=== PATIENT | female | born 1985 | race Caucasian/White ===

== ENCOUNTER 2016-12-09 10:09 | Emergency (ER) | payer OTHER ==
[2016-12-09 10:22] VITALS: BP 116/76; PULSE 73; RESP 16; TEMP 98.4; O2SAT 97
--- NOTE | 2016-12-09 10:36 | C.PDOC ---
History Of Present Illness 31 year old patient presents to the ED complaining of a diffuse and pruritic rash to her hands, extremities and torso for the past week. Patient's daughter also has similar symptoms. Patient states her daughter was given Hydrocortisone by her shuttle filler for the rash and they both have been using it without any improvement. The shuttle filler thought it was bed bugs, but the patient did not see any. Patient denies fever, cough, sensation, throat closing, wheezing, any new/unusual foods, or any new/unusual products. Time Seen by Provider: 12/09/16 10:26 Chief Complaint (Nursing): Abnormal Skin Integrity History Per: Patient History/Exam Limitations: no limitations Onset/Duration Of Symptoms: Other (1 week) Current Symptoms Are (Timing): Still Present Quality Of Symptoms: Itching Severity: Mild Pain Scale Rating Of: 2 Recent travel outside of the [place]: No Past Medical History Reviewed: Historical Data, Nursing Documentation, Vital Signs Vital Signs: Last Vital Signs Temp 98.4 F 12/09/16 10:50 Pulse 73 12/09/16 10:50 Resp 16 12/09/16 10:50 BP 116/76 12/09/16 10:50 Pulse Ox 97 12/09/16 11:15 Family History: States: No Known Family Hx - Social History Hx Tobacco Use: No Hx Alcohol Use: No Hx Substance Use: No - Immunization History Hx Tetanus Toxoid Vaccination: No Hx Influenza Vaccination: Yes Hx Pneumococcal Vaccination: No Review Of Systems Except As Marked, All Systems Reviewed And Found Negative. Constitutional: Negative for: Fever ENT: Negative for: Throat Pain, Throat Swelling Respiratory: Negative for: Cough, Wheezing Skin: Positive for: Rash (diffuse) Physical Exam - Physical Exam Appears: Non-toxic, No Acute Distress Skin: Warm, Dry, Rash (scattered maculopapular rash in the interdigital webs bilaterally in linear configurations; non-vesicular; spares the palms and soles) Oral Mucosa: Moist Tongue: Normal Appearing Lips: Normal Appearing Throat: Normal, No Erythema, No Exudate, No Drooling Chest: Symmetrical Cardiovascular: Rhythm Regular Respiratory: Normal Breath Sounds, No Rales, No Rhonchi, No Wheezing, Other ( speaking in complete sentences) Neurological/Psych: Oriented x3, Normal Speech, Normal Cognition ED Course And Treatment O2 Sat by Pulse Oximetry: 97 (RA) Pulse Ox Interpretation: Normal Progress Note: Patient is given Benadryl and Prednisone in the ED. Patient is discharged with a prescription for Benadryl, Prednisone and Permethrin cream to alleviate the symptoms. Patient is discharged and instructed to follow up with her PMD in 1-2 days or return if symptoms worsen. Disposition Counseled Patient/Family Regarding: Diagnosis, Need For Followup, Rx Given - Disposition Referrals: [facility] [Outside] Disposition: HOME/ ROUTINE Disposition Time: 10:45 Condition: STABLE Additional Instructions: FOLLOW UP WITH YOUR DOCTOR/CLINIC IN 1-2 DAYS USE MEDICATIONS DIRECTED WASH ALL LINENS WITH HOT WATER RETURN TO EMERGENCY ROOM IF SYMPTOMS WORSEN SEGUIMIENTO CON SMITH DOCTOR / CLNICA EN 1-2 JUNE USE MEDICAMENTOS SEGN LO DIRIGIDO KAREN TODAS LAS MARJ CON EKWOK DEVUELVA A LA ROSARIO DE EMERGENCIA SI LOS SNTOMAS EMPEORARAN Prescriptions: DiphenhydrAMINE [Benadryl] 25 mg PO Q4H PRN #15 cap PRN Reason: allergies Permethrin 5% [Permethrin] 5 unit TP ONCE #1 tube predniSONE [predniSONE Tab] 40 mg PO DAILY #6 tab Instructions: Dermatitis (ED), Scabies (ED) Print Language: UPPER SORBIAN - POA Present On Arrival: None - Clinical Impression Clinical Impression: Scabies, Dermatitis - Scribe Statement The provider has reviewed the documentation as recorded by the Scribe Nancy Tello Provider Attestation: All medical record entries made by the Scribe were at my direction and personally dictated by me. I have reviewed the chart and agree that the record accurately reflects my personal performance of the history, physical exam, medical decision making, and the department course for this patient. I have also personally directed, reviewed, and agree with the discharge instructions and disposition.
== END 2016-12-09 10:50 | disposition home or self-care (01) ==
LOC: C.ER 10:09
DX: B86 Scabies (principal); L30.9 Dermatitis, unspecified

== ENCOUNTER 2018-01-01 18:16 | Emergency (ER) | payer SELFPAY ==
[2018-01-01 18:32] VITALS: O2SAT 98
[2018-01-01] MEDS ORDERED: Apap-Butalbital-Caffeine 325-50-40mg Tab PO STA (19:31)
[2018-01-01] MEDS ORDERED: Apap-Butalbital-Caffeine 325-50-40mg Tab ONE (19:43)
--- NOTE | 2018-01-01 20:55 | CT ---
EXAM: CT Head Without Intravenous Contrast CLINICAL HISTORY: 32 years old, female; Condition or disease; Headache; Headache not specified TECHNIQUE: Axial computed tomography images of the head/brain without intravenous contrast. All CT scans at this facility use one or more dose reduction techniques, viz.: automated exposure control; ma/kV adjustment per patient size (including targeted exams where dose is matched to indication; i.e. head); or iterative reconstruction technique. COMPARISON: No relevant prior studies available. FINDINGS: Brain: Unremarkable. No significant white matter disease. No edema. No intracranial mass, mass effect, or midline shift. Ventricles: Unremarkable. No ventriculomegaly. Bones/joints: Unremarkable. No acute fracture. Soft tissues: Unremarkable. Sinuses: Unremarkable as visualized. No acute sinusitis. Mastoid air cells: Unremarkable as visualized. No mastoid effusion. IMPRESSION: No acute intracranial abnormality.
--- NOTE | 2018-01-01 20:59 | C.PDOC ---
History Of Present Illness 32 year old female with PMHx of migraines presents to the ED c/o moderate frontal headache associated with nausea that started yesterday. Patient noticed some swelling of her left eye which concerned her and prompted the ED visit. Patient reports she had not taken any pain medications at this time. Patient denies trauma, injury, fall, blurry vision, nausea, vomit, fever, chills, weakness, numbness. Time Seen by Provider: 01/01/18 19:22 Chief Complaint (Nursing): Headache History Per: Patient History/Exam Limitations: no limitations Onset/Duration Of Symptoms: Days Current Symptoms Are (Timing): Still Present Quality: "Pain" Preceeding Symptoms: Known Migraine Symptoms Recent travel outside of the [place]: No Additional History Per: Patient Past Medical History Reviewed: Historical Data, Nursing Documentation, Vital Signs Vital Signs: Last Vital Signs Temp 97.8 F 01/01/18 21:00 Pulse 71 01/01/18 21:00 Resp 18 01/01/18 21:00 BP 112/68 01/01/18 21:00 Pulse Ox 98 01/01/18 23:56 - Medical History PMH: Migraine Surgical History: Cholecystectomy Family History: States: Unknown Family Hx - Social History Hx Tobacco Use: No Hx Alcohol Use: No Hx Substance Use: No - Immunization History Hx Tetanus Toxoid Vaccination: No Hx Influenza Vaccination: Yes Hx Pneumococcal Vaccination: No Review Of Systems Constitutional: Negative for: Fever, Chills Eyes: Positive for: Other (swelling) ENT: Negative for: Nose Discharge, Nose Congestion Musculoskeletal: Negative for: Neck Pain Neurological: Negative for: Weakness, Numbness, Headache, Dizziness Physical Exam - Physical Exam Appears: Non-toxic, No Acute Distress Skin: Normal Color, Warm, Dry Head: Atraumatic, Normacephalic, No Swelling (facial, orbital), Other (No facial droop ) Eye(s): bilateral: Normal Inspection, PERRL, EOMI, Other (visual acuity 20/25 B/ L ) Nose: No Discharge Oral Mucosa: Moist Neck: Normal ROM, No Midline Cervical Tenderness, Supple Extremity: Normal ROM, No Tenderness, No Swelling Neurological/Psych: Oriented x3, Normal Speech, Normal Cognition, Normal Cranial Nerves, Normal Motor, Normal Sensation, Other (no focal deficits) Gait: Steady ED Course And Treatment O2 Sat by Pulse Oximetry: 98 (ON RA) Pulse Ox Interpretation: Normal - CT Scan/US CT Scan head Other Rad Studies (CT/US): Read By Radiologist, Radiology Report Reviewed CT/US Interpretation: IMPRESSION: No acute intracranial abnormality. Progress Note: Plan: - CT head. - Fioricet 2 tab PO[address] Patient requests CT head whihc was done in the ED. After medications were given on reevaluation patient reports she feels much better. Patient was D/C home and advised to follow up with PMD in 2 days for nuro referral and also with an opthalmologist for further evaluation. Pt undertands all instructions and agreed with plan. 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 - Scribe Statement The provider has reviewed the documentation as recorded by the Scribe Primo Howard All medical record entries made by the Glenibyara were at my direction and personally dictated by me. I have reviewed the chart and agree that the record accurately reflects my personal performance of the history, physical exam, medical decision making, and the department course for this patient. I have also personally directed, reviewed, and agree with the discharge instructions and disposition.
[2018-01-01 22:50] VITALS: BP 112/68; PULSE 71; RESP 18; TEMP 97.8
== END 2018-01-01 21:05 | disposition home or self-care (01) ==
LOC: C.ER 18:16
DX: G43.909 Migraine, unspecified, not intractable, without status migrainosus (principal)